=== PATIENT | female | born 1985 | race African-American/Black ===

== ENCOUNTER 2019-10-13 05:48 | Inpatient (IN) ==
[2019-10-13] MEDS ORDERED: ONDANSETRON 4 MG/2 ML VIAL IV PRN (06:15)
[2019-10-13 06:43] LABS: Basophils % 0.2 % (0.0-0.8); Eosinophils # 0.1 10*3/uL (0.0-0.87); Eosinophils % 0.6 % (0.00-10.9); Hematocrit 32.9 VOL% (35.7-47.0); Hemoglobin 10.6 GM/DL (12.0-16.0); Immature Granulocytes % 1.2 %; Immature Granulocytes Absolute 0.11 #; Lymphocytes # 1.4 10*3/uL (1.4-4.0); Lymphocytes % 16.1 % (21.3-54.2); Mean Corpuscular HGB Conc 32.2 GM/DL (32-36); Mean Corpuscular Volume 88.2 FL (87-102); Mean Platelet Volume 12.5 FL (9.6-12.0); Monocytes % 10.2 % (1.7-12.7); Neutrophils % 71.7 % (38.7-73.9); Platelet Count 146 T/CUMM (130-400); Red Blood Count 3.73 MC/CUMM (3.8-5.5)
[2019-10-13] MEDS ORDERED: PENICILLIN G POTASSIUM INJ 6,000,000 UNIT in SODIUM CHLORIDE 0.9% 100 ML IV ONE (06:45)
[2019-10-13] MEDS: OXYTOCIN/LR 20 UNIT/1,000 ML BAG IV SCH ×2 (07:56→14:21)
[2019-10-13] MEDS: LACTATED RINGERS 1,000 ML IV SCH ×2 (07:56→22:00)
[2019-10-13] MEDS ORDERED: hydrOXYzine HCL 25 MG/1 ML VIAL IM PRN (08:50)
[2019-10-13] MEDS ORDERED: ePHEDrine 50 MG/ML AMP IV PRN (08:50)
[2019-10-13] MEDS ORDERED: NALOXONE 0.4 MG/ML VIAL IV PRN (08:50)
[2019-10-13] MEDS ORDERED: PROMETHAZINE 25 MG/1 ML VIAL IM ONE (08:50)
[2019-10-13] MEDS ORDERED: diphenhydrAMINE 50 MG/1 ML VIAL IV PRN ×2 (08:50)
[2019-10-13] MEDS ORDERED: BUTORPHANOL 2 MG/ML VIAL IV ONE (08:57)
[2019-10-13] MEDS ORDERED: CITRIC ACID/SODIUM CITRATE 30 ML UDCUP PO ONE (09:00)
[2019-10-13] MEDS ORDERED: fentaNYL 2 MCG/ROPIV 0.2% EPID 100 ML EPIDURAL SCH (09:00)
[2019-10-13] MEDS ORDERED: LACTATED RINGERS 1,000 ML IV SCH (09:00)
[2019-10-13] MEDS ORDERED: FAMOTIDINE 20 MG/2 ML VIAL IV ONE (09:00)
[2019-10-13] MEDS ORDERED: miSOPROStoL 200 MCG TABLET ONE (12:15)
[2019-10-13] MEDS ORDERED: LIDOCAINE 1% 50 ML VIAL ONE (12:15)
[2019-10-13] MEDS ORDERED: TRANEXAMIC ACID 1,000 MG/10 ML VIAL ONE (12:16)
[2019-10-13] MEDS ORDERED: SODIUM CHLORIDE 0.9% 0 ML IV ONE (12:16)
[2019-10-13] MEDS ORDERED: METHYLERGONOVINE 0.2 MG/1 ML AMP ONE (12:16)
[2019-10-13] MEDS ORDERED: HYDROCORTISONE 2.5% RECTAL CREAM 30 GM TUBE TOP PRN (15:34)
[2019-10-13] MEDS ORDERED: DIPH/TET/ACEL PERT BOOSTER VACCINE 0.5 ML VIAL IM ONE (15:34)
[2019-10-13] MEDS ORDERED: RHO(D) IMMUNE GLOBULIN 300 MCG SYRINGE IM ONE (15:34)
[2019-10-13] MEDS ORDERED: MEASLES/MUMPS/RUBELLA VACCINE 0.5 ML VIAL SUBCUT ONE (15:34)
[2019-10-13] MEDS ORDERED: WITCH HAZEL PADS 100/JAR TOP PRN (15:34)
[2019-10-13] MEDS ORDERED: BISACODYL 10 MG SUPP RECTAL PRN (15:34)
[2019-10-13] MEDS ORDERED: BENZOCAINE 20%/MENTHOL 0.5% SPRAY 56 GM CAN TOP PRN (15:34)
[2019-10-13] MEDS ORDERED: LANOLIN 50% CREAM 0.3 OZ TUBE TOP PRN (15:34)
[2019-10-13] MEDS: ACETAMINOPHEN 500 MG TABLET PO SCH ×3 (20:10→22:35)
[2019-10-13] MEDS: KETOROLAC 30 MG/1 ML VIAL IV SCH (20:14)
[2019-10-13] MEDS: DOCUSATE SODIUM 100 MG CAPSULE PO SCH (21:20)
[2019-10-14] MEDS: KETOROLAC 30 MG/1 ML VIAL IV SCH (01:29)
[2019-10-14 04:43] LABS: Basophils % 0.2 % (0.0-0.8); Eosinophils % 0.4 % (0.00-10.9); Hematocrit 27.5 VOL% (35.7-47.0); Hemoglobin 8.6 GM/DL (12.0-16.0); Immature Granulocytes % 1.1 %; Immature Granulocytes Absolute 0.11 #; Lymphocytes % 19.7 % (21.3-54.2); Mean Corpuscular HGB Conc 31.3 GM/DL (32-36); Mean Corpuscular Volume 92.9 FL (87-102); Mean Platelet Volume 12.4 FL (9.6-12.0); Monocytes % 10.3 % (1.7-12.7); Neutrophils % 68.3 % (38.7-73.9); Platelet Count 141 T/CUMM (130-400); Red Blood Count 2.96 MC/CUMM (3.8-5.5); White Blood Count 10.1 T/CUMM (4-12)
[2019-10-14] MEDS: DOCUSATE SODIUM 100 MG CAPSULE PO SCH ×2 (09:54→21:10)
[2019-10-14] MEDS: ACETAMINOPHEN 500 MG TABLET PO SCH ×2 (09:54→18:03)
[2019-10-14] MEDS: IBUPROFEN 800 MG TABLET PO SCH ×2 (15:03→21:11)
[2019-10-15] MEDS: IBUPROFEN 800 MG TABLET PO SCH ×2 (02:49→09:26)
[2019-10-15] MEDS: ACETAMINOPHEN 500 MG TABLET PO SCH ×2 (02:49→09:26)
[2019-10-15 08:26] VITALS: BP 124/68
[2019-10-15] MEDS: DOCUSATE SODIUM 100 MG CAPSULE PO SCH (09:26)
[2019-10-16] MEDS ORDERED: MULTIVITAMIN (PRENATAL) TABLET PO SCH (09:00)
== END 2019-10-15 14:00 | disposition home or self-care (01) | DRG 807 ==
LOC: N.LDOUT 05:48 → N.LD 05:49 → N.OB 10-14 09:12
PROVIDERS: ADMIT Obstetrics & Gynecology; ATTEND Obstetrics & Gynecology